=== PATIENT | male | born 1970 | race Caucasian/White ===

== ENCOUNTER 2016-11-24 21:39 | Emergency (ER) | payer BC ==
[2016-11-24 21:46] VITALS: RESP 18; TEMP 98
[2016-11-24] MEDS ORDERED: LIDOCAINE HCL 1% MDV SOL SC ONE (22:02)
[2016-11-24] MEDS ORDERED: LIDOCAINE HCL 1% MPF SOL ONE (22:03)
[2016-11-24 22:21] VITALS: BP 124/78; PULSE 84; O2SAT 98
== END 2016-11-24 22:19 | disposition home or self-care (01) ==
LOC: ED 21:39
DX: S01.01XA Laceration without foreign body of scalp, initial encounter (principal)
CPT/HCPCS: 12001; 99283; A6402

== ENCOUNTER 2019-01-16 08:42 | Day surgery (SDC) | payer BC ==
[~2019-01-16 08:42] MED LIST: LIDOCAINE HCL 1% MPF 30 SOL ONE; PROPOFOL 500 MG/50 ML EMU IV ONE
[2019-01-16 10:52] VITALS: O2SAT 96
[2019-01-16 11:14] VITALS: BP 120/78; PULSE 74; RESP 18; TEMP 97.4
== END 2019-01-16 11:30 | disposition home or self-care (01) ==
LOC: SURG 08:42
PROVIDERS: ATTEND Surgery
DX: Z12.11 Encounter for screening for malignant neoplasm of colon (principal)
CPT/HCPCS: J2001; J2704